=== PATIENT | female | born 1930 | race Caucasian/White ===

== ENCOUNTER 2018-01-02 21:27 | Inpatient (IN) ==
--- NOTE | 2018-01-02 21:49 | Emergency Department Note ---
Disposition Clinical Impression: Hyponatremia, Vomiting and diarrhea, Generalized weakness, Dizziness Disposition: Admitted As Inpatient Condition: Good Referrals: Alfredo Ceballos DO [Primary Care Provider] - Nausea/Vomiting/Diarrhea HPI - General Chief complaint: ED Nausea/Vomiting/Diarrhea Stated complaint: VOMITING AND DIARRHEA Time Seen by Provider: 01/02/18 21:42 Source: family Mode of arrival: private vehicle Limitations: no limitations, age Nursing Notes Reviewed: Yes Vital Signs Reviewed: Yes - History of Present Illness HPI Narrative: Patient lives at home alone and has dementia with some short-term memory loss. Family checks in on her as well as a home helper. When the home helper arrived at 2:00 she had been having some nausea and vomiting. With the patient's memory is unknown exactly when this started. She subsequently had several more episodes of vomiting of liquid without bile or blood. She is also developed diarrhea 2-3 times in her attends. This is been without blood or mucus. She has decreased oral intake and has been now unable to stand because of dizziness. She has not been having fevers, chills or chest pain, palpitation or shortness of breath. She has not had cough or congestion. She is consistently denied any abdominal pain and states that she feels fine. She has not had recent antibiotic, ill exposure or food borne illness concerns. Her family was concerned for possible dehydration because of the weakness and dizziness and have brought her in for evaluation. It is noted that her tongue appears somewhat dry. She has had history of a partial colectomy for colon cancer 13 years ago. This had clear margins and has been declared a complete cure on subsequent follow-ups. Pt Subjective Complaint: nausea, vomiting, diarrhea Onset (ago): hour(s) Description of emesis: food contents, watery Description of Diarrhea: water Associated Abdominal Pain: No Improves with: nothing Worsens with: eating Associated symptoms: Reports: loss of appetite, malaise, nausea/vomiting, weakness. Denies: myalgias, chest pain, cough, diaphoresis, fever/chills, headaches, rash, dysuria, shortness of breath, syncope - Related Data Home Medications Medication Instructions Recorded Confirmed No Known Home Drugs 01/02/18 01/02/18 Allergies Allergy/AdvReac Type Severity Reaction Status Date / Time No Known Allergies Allergy Verified 01/02/18 21:27 All systems ED: reviewed and negative except as stated. Past Medical History - Past Medical History Attestation: Yes The following information was validated with the patient. Source: patient, old records reviewed, obtained from family, nursing notes reviewed Medical history: Reports: cancer, hypertension, thyroid disease Surgical history: Reports: cancer surgery, cholecystectomy, hip replacement, thyroidectomy Psychiatric history: Reports: no psych history - Social History Smoking Status: Never smoker Smokeless Tobacco Status: No Alcohol use: Reports: none Drug use: Reports: none Physical Exam - General Limitations: no limitations General appearance: alert, in no apparent distress - Head Head exam: atraumatic, normocephalic, normal inspection - Eye Eye exam: Present: normal appearance, PERRL, EOMI. Absent: scleral icterus, conjunctival injection - ENT ENT exam: normal exam, normal oropharynx, mucous membranes dry - Neck Neck exam: Present: normal inspection, full ROM, trachea midline. Absent: tenderness, meningismus, lymphadenopathy - Chest Chest inspection: Present: normal inspection, symmetric chest wall rise - Respiratory Respiratory exam: Present: normal lung sounds bilaterally. Absent: respiratory distress, wheezes, prolonged expiratory phase - Cardiovascular Cardiovascular exam: Present: regular rate, normal rhythm, normal heart sounds. Absent: tachycardia - Abdominal Exam Abdominal exam: Present: soft, Non-Tender, normal bowel sounds. Absent: tenderness, distention, guarding, rebound, rigidity, Jarrett's sign, tenderness at McBurney's Point, pulsatile mass, hernia - Extremities Exam Extremities exam: Present: normal inspection, full ROM, normal capillary refill. Absent: tenderness, pedal edema - Expanded Lower Extremity Exam Neurovascular/Tendon exam: Present: normal capillary refill. Absent: motor deficit, sensory deficit, tendon deficit Gait: not tested/not observed - Back Exam Back exam: Present: normal inspection, full ROM. Absent: tenderness, CVA tenderness (R), CVA tenderness (L) - Neurological Exam Neurological exam: Present: alert. Absent: oriented X3, motor sensory deficit - Psychiatric Psychiatric exam: Present: normal affect, normal mood - Skin Skin exam: Present: warm, dry, intact, normal color. Absent: diaphoresis, pallor Course Course Narrative: 2255: Given the patient's vomiting, diarrhea, weakness, dizziness and significant hyponatremia, she will need admitted to the hospital. She is been unable to urinate and this will be obtained on the floor. Care is correlated with Dr. Holguin for inpatient treatment. Vital Signs Temperature 98.4 F 01/02/18 21:29 Pulse Rate 76 01/02/18 21:29 Respiratory Rate 16 01/02/18 21:29 Blood Pressure 171/85 01/02/18 21:29 O2 Sat by Pulse Oximetry 98 01/02/18 21:29 Temperature 98.4 F 01/02/18 21:29 Pulse Rate 76 01/02/18 21:29 Respiratory Rate 16 01/02/18 21:29 Blood Pressure 171/85 01/02/18 21:29 O2 Sat by Pulse Oximetry 98 01/02/18 21:29 Oxygen Delivery Oxygen Delivery Room Air Nausea/Vomiting/Diarrhea - Differential Diagnosis Likely: food poisoning, gastroenteritis, dehydration - Medical Records Medical records reviewed: Yes I reviewed the patient's medical records. - Lab Data Lab results reviewed: Yes I reviewed the patient's lab results. Result diagrams: 01/02/18 22:02 01/02/18 22:02 Lab Results 01/02/18 01/02/18 Range/Units 22:02 22:02 WBC 6.6 (4.3-11.1) K/mcL RBC 3.58 L (3.82-4.97) M/mcL Hgb 11.4 L (11.5-15.4) g/dL Hct 31.9 L (35.3-44.9) % MCV 89.1 (83.0-100.0) fL MCH 31.8 (28.0-33.3) pg MCHC 35.7 H (31.6-35.5) g/dL RDW 12.1 (11.5-14.5) % Plt Count 163 (140-400) K/mcL MPV 7.9 L (9.4-12.4) fL Immature Gran % 0.5 (0-4) % Seg Neutrophils % 73.4 % Lymphocytes % 15.6 % Monocytes % 10.1 % Eosinophils % 0.2 % Basophils % 0.2 % Neutrophils # 4.8 (1.6-8.9) K/mcL Lymphocytes # 1.0 (0.6-4.6) K/mcL Monocytes # 0.7 (0.0-1.3) K/mcL Eosinophils # 0.0 (0.0-0.6) K/mcL Basophils # 0.0 (0.0-0.2) K/mcL Sodium 116 L* (136-145) mEq/L Potassium 3.5 (3.5-5.1) mEq/L Chloride 82 L (98-107) mEq/L Carbon Dioxide 25 (23-29) mEq/L BUN 13 (8-23) mg/dL Creatinine 0.64 (0.60-1.20) mg/dL Est GFR ( Amer) > 60 (> 60) Est GFR (Non-Af Amer) > 60 (> 60) BUN/Creatinine Ratio 20 (6-26) Glucose 139 H (70-105) mg/dL Calculated Osmolality 244 L (280-300) Calcium 8.9 (8.6-10.3) mg/dL Total Bilirubin 0.9 (0.3-1.0) mg/dL Direct Bilirubin 0.2 (0.0-0.2) mg/dL Indirect Bilirubin 0.7 (0.0-1.2) mg/dL AST 23 (13-39) Units/L ALT 16 (7-52) Units/L Alkaline Phosphatase 88 (34-104) Units/L Serum Total Protein 7.0 (6.4-8.9) g/dL Albumin 3.8 (3.5-5.7) g/dL Globulin 3.2 (2.4-3.5) g/dL Albumin/Globulin Ratio 1.2 (1.1-2.2) Lipase 17 (11-82) Units/L Critical Care Time Critical Care Time: Yes Total Critical Care Time: 30 Attestation: As this patient did present with signs and symptoms of potential life- threatening illness requiring my urgent intervention, total critical care time in this patient's care has been 30 minutes, not withstanding separately reportable procedures.
[2018-01-02] MEDS ORDERED: Ondansetron ODT 4 MG TAB.RAPDIS SL ONE (21:51)
[2018-01-02] MEDS ORDERED: 0.9 % Sodium Chloride 500 ML IVC ONE (21:51)
[2018-01-02] MEDS ORDERED: 0.9 % Sodium Chloride 1,000 ML IVC SCH (22:00)
[2018-01-02 22:07] LABS: Basophils % 0.2 %; Eosinophils % 0.2 %; Hematocrit 31.9 % (35.3-44.9); Hemoglobin 11.4 g/dL (11.5-15.4); Immature Granulocytes % 0.5 % (0-4); Lymphocytes % 15.6 %; Mean Corpuscular HGB Conc 35.7 g/dL (31.6-35.5); Mean Corpuscular Hemoglobin 31.8 pg (28.0-33.3); Mean Corpuscular Volume 89.1 fL (83.0-100.0); Mean Platelet Volume 7.9 fL (9.4-12.4); Monocytes # 0.7 K/mcL (0.0-1.3); Monocytes % 10.1 %; Neutrophils # 4.8 K/mcL (1.6-8.9); Platelet Count 163 K/mcL (140-400); Red Blood Count 3.58 M/mcL (3.82-4.97); Red Cell Distribution Width 12.1 % (11.5-14.5); Segmented Neutrophils % 73.4 %
[2018-01-02 22:54] LABS: Alanine Aminotransferase 16 Units/L (7-52); Albumin 3.8 g/dL (3.5-5.7); Albumin/Globulin Ratio 1.2 (1.1-2.2); Alkaline Phosphatase 88 Units/L (34-104); Aspartate Amino Transferase 23 Units/L (13-39); BUN/Creatinine Ratio 20 (6-26); Bilirubin,Direct 0.2 mg/dL (0.0-0.2); Bilirubin,Indirect 0.7 mg/dL (0.0-1.2); Bilirubin,Total 0.9 mg/dL (0.3-1.0); Blood Urea Nitrogen 13 mg/dL (8-23); Calcium 8.9 mg/dL (8.6-10.3); Carbon Dioxide 25 mEq/L (23-29); Chloride 82 mEq/L (98-107); Globulin 3.2 g/dL (2.4-3.5); Glucose 139 mg/dL (70-105); Lipase 17 Units/L (11-82); Osmolality,Calculated 244 (280-300); Potassium 3.5 mEq/L (3.5-5.1); Sodium 116 mEq/L (136-145); eGFR For Non-African Americans > 60 (> 60)
[2018-01-03 00:36] LABS: Bilirubin,Urine Negative (Negative); Blood,Urine Trace-intact (Negative); Glucose,Urine (UA) Normal (Normal); Ketones,Urine Negative (Negative); Leukocyte Esterase,Urine Trace (Negative); Nitrite,Urine Negative (Negative); Protein,Urine Negative (Neg-Trace); Specific Gravity,Urine 1.015 (1.010-1.025); Urobilinogen,Urine Normal (Normal)
[2018-01-03 00:41] LABS: Clarity,Urine Slightly Cloudy (Clear); Color,Urine Yellow (Yellow)
[2018-01-03 00:43] LABS: Bacteria,Urine Many per hpf (None-Few); RBC,Urine 0-3 per hpf (0-3); Squamous Epithelial Cell,Urine Few per lpf (None-Few)
[2018-01-03] MEDS ORDERED: Naloxone 0.4 MG/ML INJ IVP PRN (00:56)
[2018-01-03] MEDS ORDERED: Ondansetron 4 MG/2 ML VIAL IVP PRN (00:56)
[2018-01-03] MEDS: 0.9 % Sodium Chloride 1,000 ML IVC SCH ×2 (04:05→09:23)
[2018-01-03] MEDS: cefTRIAXone 1,000 MG in Water for inj. (sterile) 20 ML 10 ML IVP SCH (04:05)
[2018-01-03 05:43] LABS: BUN/Creatinine Ratio 19 (6-26); Blood Urea Nitrogen 12 mg/dL (8-23); Calcium 8.6 mg/dL (8.6-10.3); Carbon Dioxide 27 mEq/L (23-29); Chloride 88 mEq/L (98-107); Glucose 116 mg/dL (70-105); Osmolality,Calculated 255 (280-300); Potassium 3.5 mEq/L (3.5-5.1); Sodium 122 mEq/L (136-145); eGFR For Non-African Americans > 60 (> 60)
--- NOTE | 2018-01-03 14:36 | Internal Med History&Physical ---
Date of Encounter: 01/03/18 Time of Encounter: 14:05 Assessment and Plan (1) Hyponatremia Current visit: Yes Status: Acute Suspect secondary to vomiting and diarrhea. IV fluids with electrolytes have been ordered. Repeat labs will be done in a.m. (2) Vomiting and diarrhea Current visit: Yes Status: Acute She will be given IV fluids. Anti-emetics will be given as needed. (3) Anemia Current visit: Yes Status: Acute Order anemia testing in a.m. Qualifiers: Anemia type: unspecified type Qualified Code(s): D64.9 - Anemia, unspecified (4) Hypothyroidism Current visit: No Status: Chronic Check TSH in a.m. Qualifiers: Hypothyroidism type: unspecified Qualified Code(s): E03.9 - Hypothyroidism , unspecified (5) Generalized weakness Current visit: Yes Status: Acute PT and OT evaluations have been ordered. Internal Medicine - H&P: HPI Chief complaint: Vomiting and diarrhea Admitted From: Emergency Dept Plans for Post Hospital Care: Home History of present illness: Ms. Moreno is a 87 year old female who came to emergency room after she had multiple episodes of vomiting and diarrhea at home onset earlier in the day. She denied abdominal pain. She was evaluated in emergency room and found to have significant hyponatremia with sodium 116. [facility] for [facility] care needs. She has dementia and cannot give reliable history. GI history is pertinent for past cholecystectomy. She has no known disorders of liver or exocrine pancreas. She had segmental bowel resection several years ago for colon cancer without recurrence. Past Med Surg Social Fam HX - Past Medical History Medical history: cancer, hypertension, thyroid disease Psychiatric history: no psych history - Past Surgical History Surgical History: cancer surgery, cholecystectomy, hip replacement, thyroidectomy Additional surgical history: colon cancer. goiter removal. FX HIP WITH REPAIR - Social History Smoking Status: Never smoker Smokeless Tobacco Status: No Alcohol use: none Drug use: none - Family History Daughter Adopted: No Living Status: Still Living Hx Family Cardiac Disorders: Yes Father Living Status: Internal Medicine - H&P: Meds No Known Home Drugs 01/02/18 [History] 3 Allergy/AdvReac Type Severity Reaction Status Date / Time No Known Allergies Allergy Verified 01/02/18 21:27 All Systems PM: A 10-system review of systems was performed and is negative for pertinent findings except as documented above in the HPI. Review of systems: Gen.: Her weight has been stable for several years Cardiovascular: She has history of hypertension but no known [place] heart failure angina DVT or pulmonary embolus. Respiratory:She is a lifelong nonsmoker and has no known chronic lung disease GI: As per history of present illness : She denies hematuria dysuria or kidney stones Neurologic: She denies large distribution strokes or seizures. Endocrine: She had goiter resection several years ago and was given replacement Synthroid. She no longer takes Synthroid and has refused to take all prescribed medications. She has no known hyperlipidemia or diabetes Hematology/oncology: She had segmental resection of the colon several years ago for colon cancer. This apparently was curative and she required no postoperative chemotherapy or radiation therapy. She is presumed cancer free. She has no other anemia or other blood disorders. 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 She had left hip fracture with repair January 2015. - Constitutional Vitals: Temp Pulse Resp BP Pulse Ox 98.6 F 62 14 113/67 97 01/03/18 10:00 01/03/18 10:00 01/03/18 10:00 01/03/18 10:01/03/18 10:00 Exam: Gen.: She is a well-developed well-nourished female sitting comfortably in a chair at bedside who appears in no acute distress. HEENT: Head is atraumatic and normocephalic. Eyes: EOMI. There is no scleral icterus. Mouth: Mucosa is moist. Neck: Supple and nontender. There is no thyromegaly or adenopathy noted. Heart: Regular without murmurs gallops or ectopics Lungs: No wheezes or crackles are heard. Abdomen: Soft and nontender. No masses or guarding are noted. Exam is limited because she is in the seated position. Extremities: She has trace edema of the dorsum of the feet and lower legs bilaterally. Dorsalis pedis and posttibial pulses are trace to 1+ palpable bilaterally. She has DJD changes of her hands. Neurologic: Mental status: She is awake and attempts to answer questions but is an extremely poor historian. She does not know her age or location. Cranial nerves: Smile is symmetric. Forehead wrinkles bilaterally. Tongue protrudes midline. EOMI. Motor: There is no pronator drift. Cerebellar: Finger to nose is intact bilaterally. Skin: Warm and dry Internal Med - H&P Results - Labs CBC & Chem 7: 01/02/18 22:02 01/03/18 04:20
[2018-01-03] MEDS: 0.9 % Sodium Chloride w KCl 20 MEQ/1,000 ML MLS IVC SCH (17:50)
[2018-01-03] MEDS: Lactobacillus 1 EACH CAP.SPRINK PO SCH (20:47)
[2018-01-04] MEDS: 0.9 % Sodium Chloride w KCl 20 MEQ/1,000 ML MLS IVC SCH ×2 (03:22→14:33)
[2018-01-04 07:00] LABS: Basophils % 0.4 %; Eosinophils # 0.1 K/mcL (0.0-0.6); Hematocrit 31.2 % (35.3-44.9); Hemoglobin 10.6 g/dL (11.5-15.4); Immature Granulocytes % 0.2 % (0-4); Lymphocytes # 1.3 K/mcL (0.6-4.6); Lymphocytes % 28.1 %; Mean Corpuscular Hemoglobin 31.8 pg (28.0-33.3); Mean Corpuscular Volume 93.7 fL (83.0-100.0); Mean Platelet Volume 8.6 fL (9.4-12.4); Monocytes % 21.3 %; Neutrophils # 2.2 K/mcL (1.6-8.9); Platelet Count 158 K/mcL (140-400); Red Blood Count 3.33 M/mcL (3.82-4.97)
[2018-01-04 07:51] LABS: BUN/Creatinine Ratio 16 (6-26); Blood Urea Nitrogen 12 mg/dL (8-23); Calcium 8.6 mg/dL (8.6-10.3); Carbon Dioxide 30 mEq/L (23-29); Chloride 104 mEq/L (98-107); Glucose 97 mg/dL (70-105); Osmolality,Calculated 284 (280-300); Sodium 137 mEq/L (136-145); eGFR For Non-African Americans > 60 (> 60)
[2018-01-04 08:38] LABS: Platelet Estimate Normal (Normal)
[2018-01-04] MEDS: Lactobacillus 1 EACH CAP.SPRINK PO SCH ×2 (08:55→22:34)
[2018-01-04] MEDS: cefTRIAXone 1,000 MG in Water for inj. (sterile) 20 ML 10 ML IVP SCH (08:55)
[2018-01-04 09:55] LABS: Vitamin B12 568 pg/mL (250-1100)
[2018-01-04 09:56] LABS: Folate > 22.3 ng/mL (3.0-16.0)
[2018-01-04 09:57] LABS: % Iron Saturation 19 % (15-50); Ferritin 139 ng/mL (10-120); Iron 48 mcg/dL (50-170); Transferrin 178 mg/dL (203-362)
--- NOTE | 2018-01-04 18:16 | Internal Med Progress Note ---
Date of Encounter: 01/04/18 Time of Encounter: 18:05 - Assessment and plan (1) Hyponatremia Current Visit: Yes Status: Acute Assessment and plan: January 04. Resolved. Discontinue IV fluids. (2) Vomiting and diarrhea Current Visit: Yes Status: Acute Assessment and plan: January 04. Resolved. Continue to monitor. (3) Anemia Current Visit: Yes Status: Acute Assessment and plan: January 04. Anemia testing shows iron 48, transferrin saturation 19%, transferrin 178, ferritin 139, B12 560, and folate> 22.3. Continue to monitor CBC. Qualifiers: Anemia type: unspecified type Qualified Code(s): D64.9 - Anemia, unspecified (4) Hypothyroidism Current Visit: No Status: Chronic Assessment and plan: January 04. TSH normal at 0.700. Qualifiers: Hypothyroidism type: unspecified Qualified Code(s): E03.9 - Hypothyroidism , unspecified (5) Generalized weakness Current Visit: Yes Status: Acute Assessment and plan: January 04. Continue PT and OT intervention. - Subjective Interval history: January 04. She has no new complaints. - Constitutional Vitals: Temp Pulse Resp BP Pulse Ox 98.3 F 70 16 132/68 96 01/04/18 15:26 01/04/18 15:26 01/04/18 15:26 01/04/18 15:26 01/04/18 15:26 Exam: She is sitting on the side of the bed and appears in no acute distress. She is pleasant in conversation and answers simple questions appropriately but does not have good recall. Extremities show no edema. I reviewed her medications and lab results. Internal Medicine: Result - Labs CBC & Chem 7: 01/04/18 06:44 01/04/18 06:44 Labs: Short CBC 01/04/18 Range/Units 06:44 WBC 4.7 (4.3-11.1) K/mcL Hgb 10.6 L (11.5-15.4) g/dL Hct 31.2 L (35.3-44.9) % Plt Count 158 (140-400) K/mcL Neutrophils # 2.2 (1.6-8.9) K/mcL BMP 01/04/18 06:44 Sodium 137 Potassium 4.0 Chloride 104 Carbon Dioxide 30 H BUN 12 Creatinine 0.77 Glucose 97 Calcium 8.6 Consult Discharge Plan - Plan
[2018-01-04] MEDS: Ammonium Lactate 30 APPL/225 GM BOTTLE TP SCH (22:33)
--- NOTE | 2018-01-05 16:34 | Internal Med Progress Note ---
Date of Encounter: 01/05/18 Time of Encounter: 16:25 - Assessment and plan (1) Hyponatremia Current Visit: Yes Status: Acute Assessment and plan: January 04. Resolved. Discontinue IV fluids. (2) Vomiting and diarrhea Current Visit: Yes Status: Acute Assessment and plan: January 04. Resolved. Continue to monitor. (3) Anemia Current Visit: Yes Status: Acute Assessment and plan: January 04. Anemia testing shows iron 48, transferrin saturation 19%, transferrin 178, ferritin 139, B12 560, and folate> 22.3. Continue to monitor CBC. Qualifiers: Anemia type: unspecified type Qualified Code(s): D64.9 - Anemia, unspecified (4) Hypothyroidism Current Visit: No Status: Chronic Assessment and plan: January 04. TSH normal at 0.700. Qualifiers: Hypothyroidism type: unspecified Qualified Code(s): E03.9 - Hypothyroidism , unspecified (5) Generalized weakness Current Visit: Yes Status: Acute Assessment and plan: January 04. Continue PT and OT intervention. January 05. Anticipate discharge tomorrow to SNF. - Subjective Interval history: January 04. She has no new complaints. January 05. She has no new complaints. - Constitutional Vitals: Temp Pulse Resp BP Pulse Ox 97.6 F 70 16 157/75 96 01/05/18 15:09 01/05/18 15:09 01/05/18 15:09 01/05/18 15:09 01/05/18 15:09 Exam: She is sitting in a chair at bedside resting currently. She appears in no acute distress. Her affect is bright and cheerful. I reviewed her medications. Internal Medicine: Result - Labs CBC & Chem 7: 01/04/18 06:44 01/04/18 06:44 Consult Discharge Plan - Plan Referrals: Alfredo Ceballos DO [Primary Care Provider] - 1 week
[2018-01-05] MEDS: Lactobacillus 1 EACH CAP.SPRINK PO SCH ×2 (19:48→21:30)
[2018-01-05] MEDS: cefTRIAXone 1,000 MG in Water for inj. (sterile) 20 ML 10 ML IVP SCH (19:48)
[2018-01-05] MEDS: Ammonium Lactate 30 APPL/225 GM BOTTLE TP SCH (19:48)
[2018-01-06 07:02] VITALS: BP 147/92
[2018-01-06] MEDS: Lactobacillus 1 EACH CAP.SPRINK PO SCH (09:05)
[2018-01-06] MEDS: Ammonium Lactate 30 APPL/225 GM BOTTLE TP SCH (09:06)
--- NOTE | 2018-01-06 09:37 | Discharge Summary ---
Date of Encounter: 01/06/18 Time of Encounter: 09:27 - Discharge Diagnosis (1) Hyponatremia Priority: Primary Status: Resolved (2) Vomiting and diarrhea Priority: Secondary Status: Resolved (3) Anemia Priority: Secondary Status: Acute Qualifiers: Anemia type: unspecified type Qualified Code(s): D64.9 - Anemia, unspecified (4) Hypothyroidism Priority: Secondary Status: Chronic Qualifiers: Hypothyroidism type: unspecified Qualified Code(s): E03.9 - Hypothyroidism , unspecified (5) Generalized weakness Priority: Secondary Status: Acute Hospital course: Ms. Moreno is a 87 year old female who came to emergency room after she had multiple episodes of vomiting and diarrhea at home onset earlier in the day. She denied abdominal pain. She was evaluated in emergency room and found to have significant hyponatremia with sodium 116. She was admitted to [facility] for ongoing care needs. Initial orders were written by the emergency room physician. I saw her on January 03 and performed a history and physical. She was given IV fluids. Vomiting and diarrhea resolved after the first hospital day. Sodium level normalized to 137 by 01/04/2018. She had adequate intake of food and fluid. Anemia testing showed iron 48, transferrin saturation 19%, transferrin 178, ferritin 139, B12 560, and folate> 22.3. She will be given ferrous sulfate with ascorbic acid at [facility]. It was felt by that patient's dementia made it unsafe for her to return to independent living in the home environment at this time . On January 06 arrangements were complete for her to be discharged to [facility] for ongoing care needs. - Time Spent with Patient Total time spent providing and/or coordinating discharge services: - Discharge Medications Prescriptions: Ascorbic Acid [Vitamin C] 500 mg PO DAILY 365 Days tablet Ferrous Sulfate 325 mg PO DAILY 365 Days tablet Home Medications: Ammonium Lactate [Amlactin] 1 appl TP QMWF 30 Days bottle 01/06/18 [Rx] Ascorbic Acid [Vitamin C] 500 mg PO DAILY 365 Days tablet 01/06/18 [Rx] Ferrous Sulfate 325 mg PO DAILY 365 Days tablet 01/06/18 [Rx] Allergies/Adverse Reactions: 3 Allergy/AdvReac Type Severity Reaction Status Date / Time No Known Allergies Allergy Verified 01/02/18 21:27 Date of admission: 01/03/18 12:01 Primary care physician: Alfredo Ceballos DO - Constitutional Vitals: Temp Pulse Resp BP Pulse Ox 98.3 F 81 17 147/92 94 01/06/18 06:57 01/06/18 06:57 01/06/18 06:57 01/06/18 06:57 01/06/18 06:57 - Patient Status Disposition: Transfer SNF Condition: Good - Discharge Instructions Forms: ED Satisfaction Letter - Diet and Activity Activity: as per physical therapy Diet: regular diet
--- NOTE | 2018-01-06 09:43 | Physician Discharge Referral ---
ExtendedCare Referral Info Transfer To: [facility] Provider in Charge: Ezio Provider in Charge after Transfer: PCP (Ezio) - Diagnosis (1) Hyponatremia Priority: Primary Status: Resolved (2) Vomiting and diarrhea Priority: Secondary Status: Resolved (3) Anemia Priority: Secondary Status: Acute (4) Hypothyroidism Priority: Secondary Status: Chronic (5) Generalized weakness Priority: Secondary Status: Acute Prognosis: Fair Aware of Diagnosis: Patient, Family Aware of Prognosis: Patient, Family - Transfer Medications Prescriptions: Ascorbic Acid [Vitamin C] 500 mg PO DAILY 365 Days tablet Ferrous Sulfate 325 mg PO DAILY 365 Days tablet Home Medications: Ammonium Lactate [Amlactin] 1 appl TP QMWF 30 Days bottle 01/06/18 [Rx] Ascorbic Acid [Vitamin C] 500 mg PO DAILY 365 Days tablet 01/06/18 [Rx] Ferrous Sulfate 325 mg PO DAILY 365 Days tablet 01/06/18 [Rx] Allergies/Adverse Reactions: 3 Allergy/AdvReac Type Severity Reaction Status Date / Time No Known Allergies Allergy Verified 01/02/18 21:27 - Respiratory Orders Smoking Cessation: Smoking cessation has been advised. For more information, call the [place] Tobacco Quit Line at 1-310-NKKY-NOW. - Lab Orders Lab Orders: Other (include drug levels w/frequency) (CBC with differential, BMP in 1 week.) - Mobility Orders Ambulate - Rehabiliation Orders Rehab Potential: Fair Rehab Orders: Evaluation for Physical Therapy, Evaluation for Occupational Therapy - Diet Orders Regular CERTIFICATION: I certify that the transfer of the above named patient to an Extended Care Facility is necessary for the continuing treatment of the diagnosis listed. The above information is true and accurate reflection of patient's current condition. Confidential - Redisclosure prohibited without a patient's written consent.
== END 2018-01-06 12:40 | DRG 392 ==
LOC: INPPIK 21:27 → EMEROOPIK 21:27 → INPPIK 23:45
PROVIDERS: ADMIT Internal Medicine; ATTEND Internal Medicine